=== PATIENT | male | born 1995 | race American Indian/Alaskan Native ===

== ENCOUNTER 2017-08-16 17:51 | Emergency (ER) | payer BC ==
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
[2017-08-16] MEDS ORDERED: MOTRIN PO ONE (20:28)
[2017-08-17 04:44] VITALS: BP 118/66
== END 2017-08-16 21:44 | disposition home or self-care (01) ==
LOC: ED 17:51
DX: S62.307A Unspecified fracture of fifth metacarpal bone, left hand, initial encounter for closed fracture (principal); W22.01XA Walked into wall, initial encounter; F17.200 Nicotine dependence, unspecified, uncomplicated; Y93.9 Activity, unspecified; Y92.89 Other specified places as the place of occurrence of the external cause; Y99.9 Unspecified external cause status

== ENCOUNTER 2017-08-23 06:51 | Day surgery (SDC) | payer BC ==
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
[~2017-08-23 06:51] MED LIST: ANCEF/STERILE WATER 2 GM/20 ML IV NR
--- NOTE | 2017-08-23 07:16 | Anesthesia Day of Surgery ---
Anesthesia Day of Surgery - Day of Surgery Patient Examined: Yes Patient H&P Reviewed: Yes Patient is NPO: Yes
--- NOTE | 2017-08-23 07:16 | Anesthesia Consultation ---
Anesthesia Consult and Med Hx Date of service: 08/23/17 - Airway Anesthetic Teeth Evaluation: Good ROM Head & Neck: Adequate Mental/Hyoid Distance: Adequate Mallampati Class: Class II Intubation Access Assessment: Probably Good - Pulmonary Exam CTA: Yes - Cardiac Exam Cardiac Exam: RRR - Pre-Operative Health Status ASA Pre-Surgery Classification: ASA2 Proposed Anesthetic Plan: General - Pulmonary Hx Smoking: Yes (1-2 PER DAY) Hx Sleep Apnea: No (ROD PRE SCREEN LOW RISK) - Cardiovascular System Hx Hypertension: No - Endocrine Hx Non-Insulin Dependent Diabetes: No - Other Systems Hx Cancer: No
[2017-08-23] MEDS ORDERED: NACL BACTERIOSTATIC INFILTRATI ONE (07:42)
[2017-08-23] MEDS ORDERED: DIPRIVAN 10 MG/ML IV ONE ×2 (07:56)
[2017-08-23] MEDS ORDERED: SUBLIMAZE ONE ×2 (07:58→08:53)
[2017-08-23] MEDS ORDERED: XYLOCAINE MPF 2% ONE (07:59)
[2017-08-23] MEDS ORDERED: DILAUDID IV PRN ×2 (08:00→11:40)
[2017-08-23] MEDS ORDERED: MARCAINE 0.5% INFILTRATI ONE (08:00)
[2017-08-23] MEDS ORDERED: VERSED IV NR (08:00)
[2017-08-23] MEDS ORDERED: NACL 0.9% IR ONE (08:00)
[2017-08-23] MEDS ORDERED: PEPCID PO NR (08:00)
[2017-08-23] MEDS ORDERED: LACTATED RINGERS 1,000 ML IV SCH (08:00)
[2017-08-23] MEDS ORDERED: ANCEF/STERILE WATER 2 GM/20 ML IV ONE (08:00)
[2017-08-23] MEDS ORDERED: MARCAINE 0.5% 30 ML INFILTRATI ONE (08:52)
[2017-08-23] MEDS ORDERED: ROBINUL ONE (08:53)
[2017-08-23] MEDS ORDERED: ZOFRAN ONE ×2 (08:53→11:00)
[2017-08-23] MEDS ORDERED: NORCO 5/325 PO PRN (09:00)
[2017-08-23] MEDS ORDERED: DEMEROL ONE (10:39)
--- NOTE | 2017-08-23 10:42 | Post Anesthesia Evaluation ---
- Post Anesthesia Evaluation Patient Participated: Yes Airway Patent: Yes Stable Respiratory Function: Yes Nausea/Vomiting: No Temp > 96.8F: Yes Pain Manageable: Yes Adequeate Hydration: Yes Anesthesia Complications: No Block Receding Appropriately: Not Applicable Patient on Ventilator: No
--- NOTE | 2017-08-23 10:52 | Procedure Note ---
Date of procedure: 08/23/17 Pre-op diagnosis: displaced left fifth metacarpal fracture Post-op diagnosis: same Procedure: Closed reduction and insertion of intramedullary nail left fifth metacarpal Procedure The patient was brought to the OR and placed in the OR table in supine position following induction and intubation by anesthesia the patient's left upper extremity was prepped and draped in the usual sterile manner. A timeout procedure was done to identify the patient and the correct operative site. Using C-arm fluoroscopy the entry portal was established in the proximal portion of the fifth metacarpal using the awl the cortex was breached followed by entrance into the medullary canal A 1.6 intramedullary nail was inserted antegrade into the proximal fracture this was then advanced to the fracture site under C-arm visualization attempts were made to cross over into the distal fragment however this was not too successful therefore a small incision was made at the fracture site this was then taken deep from the distal fracture was identified The intramedullary nail was advanced across the fracture site into the distal segment again C-arm visualization was used throughout The guide intramedullary nail was then bent at a 90 angle this was then cut followed by an Iceman of locking device into the base of the fifth metacarpal next the wound was copiously irrigated and was closed in a standard routine fashion. Dressings were applied as well as a well- padded ulnar gutter splint the patient tolerated the procedure there were no complications he was sent to postanesthesia recovery in stable condition Anesthesia: LAURA Surgeon: TENZIN MCGOVERN Estimated blood loss: minimal Pathology: none Condition: stable Disposition: PACU
[2017-08-23] MEDS ORDERED: NORCO 7.5/325 PO PRN (11:38)
[2017-08-23] MEDS ORDERED: ZOFRAN IV PRN (12:00)
[2017-08-23] MEDS ORDERED: DEMEROL IV PRN (12:00)
--- NOTE | 2017-08-23 12:54 | XRay Report ---
LEFT FINGER RADIOGRAPHS INDICATION: Fracture left fifth metacarpal, postop. COMPARISON: 08/16/2017. FINDINGS: Intraoperative fluoroscopic AP views of the left hand/fifth digit obtained during wire/pin stabilization of left metacarpal shaft comminuted fracture. Alignment appears satisfactory on these views. CONCLUSION: Intraoperative fluoroscopic assistance for left fifth metacarpal fracture stabilization, as described. Thank you for the opportunity to participate in this patient's care.
[2017-08-23 16:11] VITALS: BP 143/97
== END 2017-08-23 06:52 | disposition home or self-care (01) ==
LOC: OR 06:51
PROVIDERS: ATTEND Orthopaedic Surgery
DX: S62.307A Unspecified fracture of fifth metacarpal bone, left hand, initial encounter for closed fracture (principal); X58.XXXA Exposure to other specified factors, initial encounter; Y93.89 Activity, other specified; Y92.89 Other specified places as the place of occurrence of the external cause; Y99.8 Other external cause status; F17.210 Nicotine dependence, cigarettes, uncomplicated
CPT/HCPCS: 26608; 73140; J0690; J1170; J2175; J2250; J2405; J2704; J3010; J7120

== ENCOUNTER 2017-09-18 07:54 | Outpatient (CLI) | payer BC ==
--- NOTE | 2017-09-18 09:03 | XRay Report ---
Left hand 3 views: History: Displaced fracture of shaft of fifth metacarpal. Findings: Internal fixation noted of fracture mid-diaphysis fifth metacarpal with intramedullary nail. Satisfactory alignment of fracture fragments. Impression: Stable fixation fracture fifth metacarpal.
== END 2017-09-18 07:55 | disposition home or self-care (01) ==
LOC: XRAY 07:54
PROVIDERS: ATTEND Orthopaedic Surgery
DX: S62.327A Displaced fracture of shaft of fifth metacarpal bone, left hand, initial encounter for closed fracture (principal); X58.XXXA Exposure to other specified factors, initial encounter; Y93.89 Activity, other specified; Y92.89 Other specified places as the place of occurrence of the external cause; Y99.8 Other external cause status